=== PATIENT | male | born 1940 | race Caucasian/White ===

== ENCOUNTER 2017-01-02 11:16 | Emergency (ER) | payer MEDICARE, BC ==
[2017-01-02 12:19] LABS: BASOPHIL# 0.1 X 10^3uL (0.0-0.1); BASOPHILS 0.7 % (0.0-2.0); EOSINOPHILS 3.8 % (0.0-6.0); EOSINOPHILS# 0.3 X 10^3uL (0.0-0.4); HEMATOCRIT 42.6 % (42.0-54.0); HEMOGLOBIN 14.9 g/dL (14.0-18.0); LYMPHOCYTES 13.9 % (20.0-40.0); LYMPHOCYTES# 1.2 X 10^3uL (0.8-3.8); MEAN CELL VOLUME 97.9 fL (80.0-100.0); MEAN CORPUS. HGB CONCENTRATION 34.9 g/dL (32.0-36.0); MEAN CORPUSCULAR HEMOGLOBIN 34.1 pg (29.0-35.0); MEAN PLATELET VOLUME 7.4 fL (7.4-10.4); NEUTROPHILS 70.6 % (54.0-75.0); NEUTROPHILS# 6.3 X 10^3uL (2.6-6.7); PLATELET COUNT 210 X 10^3uL (130-440); RED BLOOD COUNT 4.36 X 10^6uL (4.20-6.10); RED CELL DISTRIBUTION WIDTH 12.7 % (11.5-14.5); WHITE BLOOD COUNT 8.9 X 10^3uL (3.9-10.7)
[2017-01-02 12:31] LABS: A/G RATIO 1.1; ALBUMIN 3.9 g/dL (3.5-5.0); ALKALINE PHOSPHATASE 103 U/L (38-126); ALT 113 U/L (21-72); AST 90 U/L (17-59); BILIRUBIN, TOTAL 0.8 mg/dL (0.2-1.3); BLOOD UREA NITROGEN 14 mg/dL (9-20); CALCIUM 9.3 mg/dL (8.4-10.2); CHLORIDE 103 mmol/L (98-107); EST GLOMERULAR FILTRATION RATE > 60 mL/min; GLUCOSE 121 mg/dL (70-100); MAGNESIUM 2.3 mg/dL (1.6-2.3); POTASSIUM 3.7 mmol/L (3.5-5.1); SODIUM 139 mmol/L (137-145); TOTAL PROTEIN 7.6 g/dL (6.3-8.2)
--- NOTE | 2017-01-02 12:43 | RADIOLOGY REPORT ---
History: Shortness of breath. Comparison: None. Technique: PA and lateral chest radiographs. Findings: Predominantly linear left lower lobe opacity is present posteriorly. The lungs otherwise are mildly h yperinflated but clear. The cardiomediastinal silhouette is within normal limits for age. No pleural fluid, pneumothorax, or acute osseous abnormality. Impression: 1. Hyperinflation may be due to robust respiratory effort, asthma, or COPD. 2. Left lower lobe opacity favored to represent subsegmental atelectasis rather than pneumonia. Final Electronic Signature: This report was electronically signed by Amadou Pollard MD on 01/02/2017 1 2:40 PM. [email or web address] /
--- NOTE | 2017-01-02 13:29 | ER NURSING DOCUMENTATION ---
Nurse's Notes [facility] Name:Reno Avery Age:76 yrs Sex:Male :1940 Arrival Date:01/02/2017 Time:11:16 Bed3 Private MD:John Luna Diagnosis:Pneumonia, Unspecified-POSSIBLE;Seizure-POSSIBLE Presentation: 01/02 11:19 Acuity: FLO 3 sc1 11:26 Presenting complaint: Patient states: had a coughing spell at home and thinks pt. sc1 had a seizure. Pt. is being treated with PCN for pharyngitis by Dr. GILLILAND since wednesday. Transition of care: Home. Resp Distress? No respiratory distress is noted at this time. Notified ED Physician of patient's arrival and CC Dr. Moreno notified. 11:26 Method Of Arrival: Private Vehicle co1 Triage Assessment: 11:33 General: Appears in no apparent distress, well developed, well nourished, well groomed, sc1 Behavior is cooperative, pleasant. Pain: Denies pain. Respiratory: Breath sounds are clear bilaterally. Historical: - Allergies: No known drug Allergies; - Home Meds: 1. penicillin V potassium Oral - PMHx: None; - PSHx: None; - Ebola Screening: : Patient negative for fever greater than or equal to 101.5 degrees Fahrenheit, and additional compatible Ebola Virus Disease symptoms. Patient denies exposure to infectious person. Patient denies travel to an Ebola-affected area in the 21 days before illness onset. No symptoms or risks identified at this time. . - Immunization history: Pneumococcal vaccine is up to date, Flu Vaccine < 1 year. - Social history: Smoking status: Patient states former smoker of tobacco. Patient/guardian denies using alcohol, street drugs, IV drugs, marijuana. Screenin:34 Infectious Disease Risk None. Abuse screen: Denies threats or abuse. Nutritional sc1 screening: No deficits noted. Vital Signs: 11:23 BP 153 / 80 (auto/); sc1 11:23 Pulse 75; Resp 20; Temp 98.1; sc1 ED Course: 11:17 Patient arrived in ED. ama 11:18 John Luna MD is Private Physician. ama 11:19 Anusha Cuellar, GRACIE is Primary Nurse. sc1 11:19 Triage completed. sc1 11:21 Ramón Moreno MD is Attending Physician. tl1 11:34 Notified ED Physician of patient's arrival and chief complaint. Dr. Moreno notified. Arm sc1 band placed on Bed in low position Call Light in Reach Gowned HOB Elevated. 12:01 Inserted peripheral IV: 20 gauge in left antecubital area and blood collected. arc 12:05 Patient moved to radiology. pm1 13:12 John Luna MD is Referral Physician. tl1 13:28 Discontinued lock intact, bleeding controlled, pressure dressing applied, No sc1 redness/swelling at site. Administered Medications: No medications were administered Outcome: 13:13 Discharge ordered by . tl1 13:29 Discharged to home ambulatory. sc1 13:29 Condition: stable 13:29 Discharge instructions given to patient, family, Instructed on discharge instructions, follow up and referral plans. medication usage, Demonstrated understanding of instructions, medications, Prescriptions given X 1. 13:29 Patient left the ED. sc1 Signatures: Anusha Cuellar RN RN sc1 Pedro Baker pm1 Art Abreu, Reg Reg ama Ramón Moreno MD MD tl1 Nicky Meade, Reg Reg arc
--- NOTE | 2017-01-02 13:29 | ER PHYSICIAN DOCUMENTATION ---
Physician Documentation [facility] Name:Reno Avery Age:76 yrs Sex:Male :1940 Arrival Date:01/02/2017 Time:11:16 Bed3 Private MD:John Luna ED, Tom Disposition: 01/02 15:00 Chart complete. tl1 Disposition: 01/02/17 13:13 Discharged to Home/Self Care. Impression: Pneumonia, Unspecified - POSSIBLE, Seizure - POSSIBLE. - Condition is Good. - Discharge Instructions: SEIZURE, New Onset, Unk Cause [Adult], Inflammation, Lung - PNEUMONIA (Adult). - Prescriptions for Doxycycline Hyclate 100 mg Oral Tablet - take 1 tablet by ORAL route every 12 hours; 20 tablet. - Medical Reconciliation form form. - Follow up: John Luna MD; When: 4- 6 days; Reason: Recheck today's complaints, Continuance of care. - Problem is new. - Symptoms have improved. HPI: 11:20 This 76 yrs old Male presents to ER via Private Vehicle with complaints of tl1 Cough. 11:20 About a week ago he presented to his PCP's office with ST and cough. Reportedly he was tl1 treate with amoxicillin, despite a negative RST. since then he has been getting slowly better. This morning, however at about 0830, he had a prolonged coughing spell. This was followed by a shaking spell described by his as a "seizure". She says he was unresponsive to voice during this episode which lasted about 45 seconds. She said he appeared groggy for about 30 seconds or so, but that he had returned to his baseline mental status after about a minute. No incontinence or tongue biting. No prior h/o seizures. He had an MRI of the brain in 2016 that was unremarkable.. Historical: - Allergies: No known drug Allergies; - Home Meds: 1. penicillin V potassium Oral - PMHx: None; - PSHx: None; - Ebola Screening: : Patient negative for fever greater than or equal to 101.5 degrees Fahrenheit, and additional compatible Ebola Virus Disease symptoms. Patient denies exposure to infectious person. Patient denies travel to an Ebola-affected area in the 21 days before illness onset. No symptoms or risks identified at this time. . - Immunization history: Pneumococcal vaccine is up to date, Flu Vaccine < 1 year. - Social history: Smoking status: Patient states former smoker of tobacco. Patient/guardian denies using alcohol, street drugs, IV drugs, marijuana. ROS: 11:35 Respiratory: Positive for cough, Negative for hemoptysis, orthopnea, pleurisy, tl1 shortness of breath, sputum production, wheezing. 11:35 Abdomen/GI: Positive for abdominal pain, nausea, vomiting, diarrhea. 11:35 All other systems are negative. Exam: 11:35 Constitutional: This is a well developed, well nourished patient who is awake, alert, tl1 and in no acute distress. Head/Face: Normocephalic, atraumatic. 11:35 Eyes: Pupils equal round and reactive to light, extra-ocular motions intact. Lids and tl1 lashes normal. Conjunctiva and sclera are non-icteric and not injected. Cornea within normal limits. Periorbital areas with no swelling, redness, or edema. 11:35 ENT: Posterior pharynx: Tonsils: with erythema, no enlargement, no exudate, no ulcerations, Uvula: normal, midline, erythema, that is moderate, exudate, is not appreciated, peritonsillar mass, is not appreciated. 11:35 Neck: External neck: is normal, ROM/movement: is normal, is supple, Lymph nodes: no appreciated lymphadenopathy. 11:35 Chest/axilla: Exam negative for acute changes. 11:35 Cardiovascular: Rate: normal, Rhythm: regular, Heart sounds: normal, Edema: is not appreciated. 11:35 Respiratory: the patient does not display signs of respiratory distress, Respirations: normal, Breath sounds: are normal. 11:35 Abdomen/GI: Palpation: abdomen is soft and non-tender. 11:35 Musculoskeletal/extremity: Exam is negative for acute changes. 11:35 Skin: Exam negative for acute changes. 11:35 Neuro: Orientation: is normal, Mentation: is normal, Cranial nerves: grossly normal, Motor: is normal, Gait: is steady, at a normal pace, without difficulty. Vital Signs: 11:23 BP 153 / 80 (auto/); sc1 11:23 Pulse 75; Resp 20; Temp 98.1; sc1 MDM: 11:21 Patient medically screened. tl1 13:15 Data reviewed: vital signs, nurses notes, lab test result(s), CBC, electrolytes, tl1 hepatic panel, radiologic studies, plain films, and as a result, I will discharge patient, administer antibiotics Doxycycline. Test interpretation: by ED physician or midlevel provider: plain radiologic studies. Counseling: I had a detailed discussion with the patient and/or guardian regarding: the historical points, exam findings, and any diagnostic results supporting the discharge/admit diagnosis, radiology results, the need for outpatient follow up, for a referral to a specialist, a neurologist, to return to the emergency department if symptoms worsen or persist or if there are any questions or concerns that arise at home. Response to treatment: There is no appreciated change of the patient's symptoms at this time, and as a result, I will discharge patient. Special discussion: The LLL hazines in the LLL could be c/w pneumonia or more likely, atelectasis, but his O2 sat is low-anna at about 88% and I think it is reasonable to treat with doxycycline. As for the shaking spell, I think it is probably a vagal reaction after the cough,and t the history is really not definitive for a seizure. I don't think he needs an imaging study urgently (MRI is not available on Wednesday) and our CT scanner is down at the moment. He could have either test as an outpatient, and I don't think he needs to go down the hill for either, at the moment, and he does not want to go down, now, either.. He already has a neurologist, Dr Amador, and I recommended f/u w/in 2 weeks. He should return here for another "spell" and avoid any activities which could be dangerous if he has a seizure,. Special discussion: such as driving, swimming, etc.. 01/02 12:25 Order name: CBC AUTO DIF, MDIF/RMOR IF IND; Complete Time: 12:51 EDMS 01/02 12:46 Interpretation: Normal: WHITE BLOOD COUNT 8.9; HEMOGLOBIN 14.9; HEMATOCRIT 42.6; tl1 PLATELET COUNT 210. 01/02 12:39 Order name: COMPREHENSIVE METABOLIC PANEL; Complete Time: 12:51 EDMS 01/02 12:46 Interpretation: Normal Except: ALT 113; AST 90. tl1 01/02 12:39 Order name: MAGNESIUM; Complete Time: 12:51 EDMS 01/02 12:46 Interpretation: Normal: MAGNESIUM 2.3. 1 01/02 12:40 Order name: BNP,NT-PRO; Complete Time: 12:51 EDMS 01/02 12:46 Interpretation: Normal: BNP,NT-PRO 249. [facility] 01/02 12:47 Order name: CXR 2V [id number]; Complete Time: 13:05 EDMS Dispensed Medications: No medications were administered Signatures: Anusha Cuellar RN RN me1 Ramón Moreno MD MD tl1
== END 2017-01-02 13:29 | disposition home or self-care (01) ==
LOC: ER 11:16
DX: R05 Cough (principal); J02.9 Acute pharyngitis, unspecified; R25.8 Other abnormal involuntary movements; R91.8 Other nonspecific abnormal finding of lung field; R11.2 Nausea with vomiting, unspecified; R19.7 Diarrhea, unspecified; R10.9 Unspecified abdominal pain
CPT/HCPCS: 71020; 80053; 83735; 83880; 85025; 99283; 99284